=== PATIENT | female | born 1965 | race Caucasian/White ===

== ENCOUNTER 2018-06-09 16:49 | Emergency (ER) | payer OTHER ==
[~2018-06-09] VITALS: Ht 170.1 cm; Wt 95.3 kg
--- NOTE | ~2018-06-09 | EKG ---
[place], [place] ELECTROCARDIOGRAM REPORT NAME: CHANNING CARNES UNIT #: [id number] ROOM: DOCTOR: EPIPHANY DRAFT REPORT BIRTHDATE: [birth year] [facility] Test Date: 2018-06-09 Test Time: 17:42:56 Pat Name: CHANNING CARNES Department: Room: Gender: F [employer] Administrator: : 1965 Requested By: DIEUDONNE HO PA-C Order Number: [id number] Reading MD: Adan Lemus MD Measurements Intervals [place] Rate: 88 P: 69 VT: 148 QRS: 22 QRSD: 98 T: 65 QT: 390 QTc: 472 Interpretive Statements Sinus rhythm Normal ECG Electronically Signed On 06-14-2018 7:17:54 PST by Adan Lemus MD CM:EKGRPT:ELECTROCARDIOGRAM REPORT [id number] DIEUDONNE HO PA-C EPIPHANY DRAFT REPORT DIEUDONNE HO PA-C
[2018-06-09 17:35] LABS: BASO # 0.1 10*3/uL (0.0-0.1); BASO % 0.7 % (0.0-1.0); EOS # 0.2 10*3/uL (0.0-0.4); EOS % 2.3 % (1.0-4.0); HEMATOCRIT 31.7 % (37.0-47.0); HEMOGLOBIN 10.5 g/dl (12.0-16.0); LYMPH # 2.1 10*3/uL (1.3-4.4); LYMPH % 20.5 % (27.0-41.0); MEAN CELL VOLUME 101.9 fl (81.0-99.0); MEAN CORPUSCULAR HGB 33.8 pg (27.0-31.0); MEAN CORPUSCULAR HGB CONC 33.1 g/dl (33.0-37.0); MONO # 0.6 10*3/uL (0.1-1.0); MONO % 6.4 % (3.0-9.0); NEUT % 69.7 % (47.0-73.0); PLATELET COUNT AUTOMATED 378 10*3/uL (130-400); RED BLOOD COUNT 3.11 10*6/uL (4.10-5.10); RED CELL DISTRI WIDTH 16.6 % (0-14.5)
[2018-06-09 17:42] LABS: INTERNATIONAL NORM RATIO 0.9 (2.0-3.5)
[2018-06-09 17:50] LABS: ALKALINE PHOSPHATASE 116 U/L (45-117); BUN 13 mg/dl (7-24); CHLORIDE 103 mmol/L (98-107); CREATININE 0.74 mg/dL (0.55-1.02); SGOT/AST 28 IU/L (3-35); SGPT/ALT 26 U/L (12-78); SODIUM 137 mmol/L (136-145)
[2018-06-09 17:52] LABS: TROPONIN I < 0.015 ng/ml (<0.045)
[2018-06-09] MEDS ORDERED: ZITHROMAX250 MG PO (18:27)
== END 2018-06-09 18:04 | disposition home or self-care (01) ==
LOC: ED
PROVIDERS: Physician Assistant
DX: J18.9 Pneumonia, unspecified organism (principal); R60.0 Localized edema; F17.200 Nicotine dependence, unspecified, uncomplicated

== ENCOUNTER → 2018-11-24 | Outpatient (CLI) | payer OTHER ==
[~2018-11-24] MED LIST: ARIPIPRAZOLE2 MG PO; ATORVASTATIN CA20 M1 PO; CLONAZEPAM0.5 M2 PO; DOXYCYCLINE100 M3 PO; FEROSUL325 M1 PO; FLONASE ALLERG9.9 ML NAS; FLUOXETINE HYDR20 M1 PO; GABAPENTIN800 MG PO; GOOD NEIGHBOR L10 MG PO; LISINOPRIL10 M1 PO; METOPROLOL TART50 M1 PO; PREDNISONE10 MG PO; Synthroid,Levo25 MCG PO; TEMAZEPAM30 MG PO; ZITHROMAX250 MG PO
== END | disposition home or self-care (01) ==
LOC: US 10:02
DX: I65.23 Occlusion and stenosis of bilateral carotid arteries (principal); I10 Essential (primary) hypertension; F17.200 Nicotine dependence, unspecified, uncomplicated; R51 Headache

== ENCOUNTER 2019-04-24 09:33 | Inpatient (IN) | payer OTHER ==
[~2019-04-24] VITALS: Ht 175.3 cm; Wt 76.8 kg
[2019-04-24] VITALS (9 sets, daily range): BP systolic 103–120; BP diastolic 52–74
--- NOTE | ~2019-04-24 | CON ---
[place], [place] REPORT OF CONSULTATION NAME: CHANNING CARNES UNIT #: [id number] ROOM: 504 DOCTOR: HAZEL ORELLANA DMD BIRTHDATE: [birth year] DOS: REASON FOR CONSULTATION: Intraoral pain following full mouth extraction. HISTORY OF PRESENT ILLNESS: The patient gives a history of full mouth extraction roughly a month ago at [facility] in [place]. The patient's complaint is continued pain over this last month with slowly healing extraction sites. No swelling noted. Intraoral exam shows multiple healing extraction sites with areas of sharp bone. There are multiple areas of bone fragments migrating to the surface of the tissue. Recommend the patient contact her private dentist once discharged and have those areas removed and the sharp areas of bone were smoothed. Patient is okay for dental discharge. HAZEL ORELLANA DMD CM:CONSTR:REPORT OF CONSULTATION [id number] 04/26/19 0053 interface
--- NOTE | ~2019-04-24 | EKG ---
[place], [place] ELECTROCARDIOGRAM REPORT NAME: CHANNING CARNES UNIT #: [id number] ROOM: 504 DOCTOR: BLAINE DRAFT REPORT BIRTHDATE: [address] [facility] Test Date: 2019-04-24 Test Time: 10:01:51 Pat Name: CHANNING CARNES Department: Room: [facility] Gender: F Pulley Man: : 1965 Requested By: JASON CABALLERO Order Number: [id number] Reading MD: Yvon Hoyt MD Measurements Intervals [place] Rate: 74 P: 63 CO: 137 QRS: 6 QRSD: 86 T: 55 QT: 404 QTc: 449 Interpretive Statements Sinus rhythm Compared to ECG 12/21/2018 03:55:53 No significant changes Electronically Signed On 04-24-2019 12:06:56 PDT by Yvon Hoyt MD CM:EKGRPT:ELECTROCARDIOGRAM REPORT [id number] JASON VALLADARES DRAFT REPORT JASON CABALLERO M.D.
[2019-04-24 10:08] LABS: HEMATOCRIT 40.9 % (37.0-47.0); HEMOGLOBIN 12.8 g/dl (12.0-16.0); MEAN CELL VOLUME 107.9 fl (81.0-99.0); MEAN CORPUSCULAR HGB 33.8 pg (27.0-31.0); MEAN CORPUSCULAR HGB CONC 31.3 g/dl (33.0-37.0); MEAN PLATELET VOLUME 8.8 fl (9.6-12.3); PLATELET COUNT AUTOMATED 495 10*3/uL (130-400); RED BLOOD COUNT 3.79 10*6/uL (4.10-5.10); RED CELL DISTRI WIDTH 15.1 % (0-14.5); WHITE BLOOD COUNT 11.4 10*3/uL (4.8-10.8)
[2019-04-24 10:23] LABS: ALBUMIN 3.7 gm/dl (3.1-4.5); ALKALINE PHOSPHATASE 141 U/L (45-117); BUN 26 mg/dl (7-24); CHLORIDE 101 mmol/L (98-107); CREATININE 3.55 mg/dL (0.55-1.02); POTASSIUM 4.4 mmol/L (3.5-5.1); SGOT/AST 24 IU/L (3-35); SGPT/ALT 20 U/L (12-78); SODIUM 140 mmol/L (136-145); TOTAL PROTEIN 8.3 gm/dL (6.4-8.2)
[2019-04-24 10:24] LABS: TROPONIN I < 0.015 ng/ml (<0.045)
[2019-04-24 10:30] LABS: ATYPICAL LYMPHS 1 % (0-0); BASOPHILS 4 % (0-1); PLATELET SUFFICIENCY HIGH (NORMAL); TOTAL CELLS COUNTED 100 #CELLS
[2019-04-24 10:31] LABS: POLYCHROMASIA SLIGHT
--- NOTE | 2019-04-24 10:46 | NUR ---
IV WAS ESTABLISED IN THE RAN, IV FLUIDS INFUSUSING PER ORDER. PT WAS ADMINISTERED TYLENOL FOR HEADACHE.
[2019-04-24 11:22] LABS: BILIRUBIN 1+ (NEGATIVE); BLOOD TRACE-INTACT (NEGATIVE); CLARITY CLOUDY (CLEAR); COLOR YELLOW (YELLOW); GLUCOSE NEGATIVE (NEGATIVE); KETONE TRACE (NEGATIVE); LEUKO ESTERASE TRACE (NEGATIVE); NITRITE NEGATIVE (NEGATIVE); PH 5.5 (5.0-9.0); SPECIFIC GRAVITY >= 1.030 (1.005-1.030); UROBILINOGEN 0.2 E.U./dl (0.2-1.0)
[2019-04-24 11:31] LABS: BACTERIA 1+; EPITHELIAL CELLS TNTC; RBC 0-2 rbc/hpf (0-2)
--- NOTE | 2019-04-24 12:56 | NUR ---
Time: 1255 A 54 year old ACUTE RENAL INSUFFIENCY, DEHYDRATION admitted to 5E under services of JOE CHAVEZ DO. Pt. arrived via stretcher from ER. Chief complaint: COUGH, HEADACHE WEAKNESS AND HYPOTENSIONBP UPON ARRIVAL TO FLOOR IS 103/53 MEDICATIONS RECONSILED AND CALL TO PHYSICIAN.. RUPERT VAALDEZ
--- NOTE | 2019-04-24 14:29 | NUR ---
PATIENT GIVEN MORPHINE FOR SEVERE H/A 04/19
--- NOTE | 2019-04-24 14:59 | NUR ---
CALL PLACED AND SPOKE TO DR. ORELLANA ADVISED OF CONSULT
--- NOTE | 2019-04-24 15:29 | NUR ---
GOOD EFFECT FROM MORPHINE GIVEN X 1 HOUR AGO EVIDENCE BY PATIENT SLEEPING, NO DISTRESS NOTED.
--- NOTE | 2019-04-24 21:35 | NUR ---
PATIENT REQUESTING TO HAVE IV MOVED BECAUSE EVERYTIME SHE BENDS HER ARM. IV started left forearm with #22 protective cath after 1 attempts. Site prepped with Chloroprep. Sterile dressing applied. Patient tolerated procedure well. DIEUDONNE LINARES
[2019-04-25] VITALS: BP 116/61
--- NOTE | 2019-04-25 04:33 | NUR ---
24 HR chart check completed.
--- NOTE | 2019-04-25 06:37 | NUR ---
PATIENT REQUESTING PAIN MEDICATION FOR MOUTH PAIN RATED 8/10 ON 0/10 SCALE. NORCO ADMINISTERED PRESCRIBED. WILL MONITOR FOR EFFECTIVENESS.
[2019-04-25 06:46] LABS: HEMATOCRIT 34.9 % (37.0-47.0); MEAN CELL VOLUME 106.7 fl (81.0-99.0); MEAN CORPUSCULAR HGB 33.6 pg (27.0-31.0); MEAN CORPUSCULAR HGB CONC 31.5 g/dl (33.0-37.0); MEAN PLATELET VOLUME 9.1 fl (9.6-12.3); PLATELET COUNT AUTOMATED 427 10*3/uL (130-400); RED BLOOD COUNT 3.27 10*6/uL (4.10-5.10); RED CELL DISTRI WIDTH 14.6 % (0-14.5); WHITE BLOOD COUNT 13.8 10*3/uL (4.8-10.8)
[2019-04-25 07:03] LABS: CREATININE 4.39 mg/dL (0.55-1.02); PHOSPHOROUS 3.5 mg/dL (2.5-4.9); POTASSIUM 4.5 mmol/L (3.5-5.1)
[2019-04-25 07:12] LABS: ATYPICAL LYMPHS 1 % (0-0); TOTAL CELLS COUNTED 100 #CELLS
[2019-04-25 07:13] LABS: PLATELET SUFFICIENCY HIGH (NORMAL)
[2019-04-25 08:00] VITALS: BP 132/72
--- NOTE | 2019-04-25 10:13 | NUR ---
PATIENT C/O MOUTH PAIN AND A HEADACHE. MEDICATED WITH NORCO PER PRN ORDERS. RATE 5/10 ON PAIN SCALE. WILL CONTINUE TO MONITOR.
--- NOTE | 2019-04-25 11:30 | NUR ---
PATIENT RESTING QUIETLY. NO FURTHER C/O PAIN. WILL CONTINUE TO MONITOR.
[2019-04-25 12:00] VITALS: BP 153/83
--- NOTE | 2019-04-25 12:05 | NUR ---
[employer]rown Perforator Operator in to talk to patient. Patient states lives at HOME with ALONE. There are NO steps in the home. Physician: Santa VILLAFANA Pharmacy: WANTS SENT TO [facility] Home health services: NONE Patient's level of ADLs: INDEPENDENT Patient has working utilities: YES DME: NONE Follow-up physician's appointment after d/c: WILL BE MADE BY HOSPITALIST NURSE DIRECTOR Does patient want to access PORTAL?: NO Discharge plan PT LIVES AT HOME ALONE. STATES SHE IS INDEPENDENT IN HER CARE. PLANS TO RETURN HOME ON DISCHARGE WHEN MEDICALLY STABLE WITH NO NEW NEEDS. WILL CONTINUE TO FOLLOW. STATES SHE WILL HAVE A RIDE HOME ON DISCHARGE.. MARIELOS LINARES
--- NOTE | 2019-04-25 14:16 | NUR ---
PATIENT C/O MOUTH PAIN AND HEADACHE. MEDICATED WITH NORCO PER PRN ORDER. WILL CONTINUE TO MONITOR.
[2019-04-25 16:00] VITALS: BP 141/74
--- NOTE | 2019-04-25 16:00 | NUR ---
NO FURTHER C/O PAIN AT THIS TIME. NORCO EFFECTIVE.
[2019-04-25 18:38] LABS: URINE CREATININE RANDOM 72.6 mg/dL
[2019-04-25 20:00] VITALS: BP 140/71
--- NOTE | 2019-04-25 22:20 | NUR ---
MEDICATED WITH NORCO AND CEPACOL PER PRN ORDERS FOR C/O COUGH AND PAIN.
[2019-04-26] VITALS: BP 146/86
--- NOTE | 2019-04-26 | NUR ---
PATIENT STATES MEDICATIONS WERE EFFECTIVE. NO OTHER COMPLAINTS VOICED AT THIS TIME. RESPIRATIONS EASY, NON LABORED. NORMAL SALINE RUNNING AT 100ML/HR. NO SIGNS OF DISTRESS. BED IN LOWEST POSITION,CALL LIGHT WITHIN REACH.WILL CONTINUE TO MONITOR.
--- NOTE | 2019-04-26 04:00 | NUR ---
PATIENT SLEEPING.NO SIGNS OF DISTRESS.RESPIRATIONS EASY, NON LABORED. BED IN LWOEST POSITION,CALL LIGHT WITHIN REACH. WILL CONTINUE TO MONITOR.
[2019-04-26 07:09] LABS: CREATININE 3.98 mg/dL (0.55-1.02); POTASSIUM 4.9 mmol/L (3.5-5.1)
--- NOTE | 2019-04-26 08:20 | NUR ---
MEDICATED WITH NORCO PER PRN ORDER FOR COMPLAINTS OF HEADACHE AND TOOTH PAIN. WILL MONITOR FOR EFFECTIVENESS.
[2019-04-26 08:59] VITALS: BP 164/100
--- NOTE | 2019-04-26 10:00 | NUR ---
PT RESTING COMFORTABLY, EARLIER NORCO EFFECTIVE.
--- NOTE | 2019-04-26 10:53 | NUR ---
Nutritional Support Services Note: Pt states she has had teeth removed recently that is why is had a lack of appetite and weight loss. Ht.5'9 Wt.169# IBW 145#. BMI 25. Regular diet as ordered approriate. Appetite has been good since admission. No nutriton intervention needed at this time. Continue to encourage good po in take. Zully Rankin Rdn Ld
--- NOTE | 2019-04-26 11:59 | NUR ---
PT DENIES NEEDS AT HOME ON DISCHARGE. WILL CONTINUE TO FOLLOW. STATES SHE WILL HAVE A RIDE HOME.
[2019-04-26 12:00] VITALS: BP 178/94
--- NOTE | 2019-04-26 13:22 | NUR ---
MEDICATED WITH NORCO FOR COMPLAINTS OF A HEADACHE. WILL MONITOR FOR EFFECTIVENESS.
--- NOTE | 2019-04-26 13:47 | NUR ---
DR HAWKINS MADE AWARE OF PT'S TRENDING ELEVATED BP'S: LATEST 178/94, PT STATES PREVIOUSLY WHEN SHE WAS ONLY ON METOPROLOL THIS HAPPENED.
--- NOTE | 2019-04-26 15:00 | NUR ---
PT RESTING COMFORTABLY, EARLIER NORCO EFFECTIVE.
[2019-04-26 16:00] VITALS: BP 161/86
--- NOTE | 2019-04-26 18:15 | NUR ---
MEDICATED WITH NORCO PER PRN ORDER FOR COMPLAINTS OF HEADACHE, WILL MONITOR FOR EFFECTIVENESS.
[2019-04-26 20:00] VITALS: BP 168/88
--- NOTE | 2019-04-26 22:51 | NUR ---
PATIENT REQUESTING SOMETHING TO HELP SLEEP. MEDICATED WITH RESTORIL WILL CHECK EFFECTIVESS. PATIENT ALSO STATES NORCO IS HELPING HER MOUTH PAIN.
[2019-04-27] VITALS: BP 149/91
--- NOTE | 2019-04-27 03:58 | NUR ---
PATIENT C/O [facility] PAIN, RATES 6/10. MEDICATED WITH NORCO.WILL CHECK EFFECTIVENESS.
[2019-04-27 06:38] LABS: CREATININE 3.01 mg/dL (0.55-1.02); POTASSIUM 5.1 mmol/L (3.5-5.1)
[2019-04-27 08:00] VITALS: BP 184/94
--- NOTE | 2019-04-27 08:29 | NUR ---
MEDICATED WITH NORCO FOR COMPLAINTS OF HEADACHE AND DENTAL PAIN. WILL MONITOR.
--- NOTE | 2019-04-27 10:00 | NUR ---
SPOKE WITH DR HANDLEY, PER DR MARADIAGA REQUEST, STATES PT MAY BE D/C FROM HER STANDPOINT AND FOLLOW UP OUTPATIENT WITH DR MCDONALD. DR KING INFORMED.
[2019-04-27 12:00] VITALS: BP 167/90
--- NOTE | 2019-04-27 12:08 | NUR ---
PT STATES SHE THINKS SHE IS GOING HOME TODAY. STATES SHE WILL NEED A RIDE TO [facility] THEN HOME. WILL CONTINUE TO FOLLOW.
--- NOTE | 2019-04-27 12:12 | NUR ---
CALLED HOSPITALIST OFFICE TO ASK THEM TO SEND PT MEDS TO OUR PHARMACY TO GET FILLED THEN WILL WORK TO GET A PT RIDE HOME.
[2019-04-27] MEDS ORDERED: NICOTINE PATCH1 EAC2 TD (12:56)
[2019-04-27] MEDS ORDERED: AMLODIPINE BESYL5 MG PO (12:56)
[2019-04-27] MEDS ORDERED: PREDNISONE10 MG PO (12:56)
--- NOTE | 2019-04-27 13:24 | NUR ---
MEDICATED WITH NORCO PER PRN ORDER FOR COMPLAINTS OF HEADACHE AND DENTAL PAIN. WILL MONITOR FOR EFFECTIVENESS.
--- NOTE | 2019-04-27 15:00 | NUR ---
Discharge instructions reviewed with patient/family. Patient receptive and verbalizes understanding. Follow-up care arranged. Written instructions given to patient/family. IV site removed. HELEN WEAVER
== END 2019-04-27 15:04 | disposition home or self-care (01) | DRG 207 ==
LOC: ED 09:33 → 5E 11:48 → EDHOLD 11:48 → 5E 12:28
PROVIDERS: Emergency Medicine; Internal Medicine; Student in an Organized Health Care Education/Training Program; ADMIT Internal Medicine
DX: I95.9 Hypotension, unspecified (principal); E86.0 Dehydration; N17.0 Acute kidney failure with tubular necrosis; E44.1 Mild protein-calorie malnutrition; D53.9 Nutritional anemia, unspecified; I10 Essential (primary) hypertension; D72.829 Elevated white blood cell count, unspecified; J18.9 Pneumonia, unspecified organism; E78.5 Hyperlipidemia, unspecified; E03.9 Hypothyroidism, unspecified; E66.3 Overweight; E55.9 Vitamin D deficiency, unspecified; R80.9 Proteinuria, unspecified; R82.2 Biliuria; R82.71 Bacteriuria; Z88.0 Allergy status to penicillin; Z88.1 Allergy status to other antibiotic agents; Z91.5 Personal history of self-harm; Z87.891 Personal history of nicotine dependence; Z82.49 Family history of ischemic heart disease and other diseases of the circulatory system; Z79.899 Other long term (current) drug therapy; Z68.24 Body mass index [BMI] 24.0-24.9, adult

== ENCOUNTER → 2019-06-01 | Outpatient (CLI) | payer OTHER ==
[~2019-06-01] MED LIST changes: +AMLODIPINE BESYL5 MG PO; +NICOTINE PATCH1 EAC2 TD
== END | disposition home or self-care (01) ==
LOC: ORTHO 00:37
DX: M25.511 Pain in right shoulder (principal)

== ENCOUNTER → 2019-08-24 | Outpatient (CLI) | payer OTHER ==
[2019-08-24 09:35] LABS: BASO # 0.1 10*3/uL (0.0-0.1); BASO % 0.9 % (0.0-1.0); EOS # 0.4 10*3/uL (0.0-0.4); EOS % 3.2 % (1.0-4.0); HEMATOCRIT 40.9 % (37.0-47.0); HEMOGLOBIN 13.2 g/dl (12.0-16.0); LYMPH # 1.9 10*3/uL (1.3-4.4); LYMPH % 16.4 % (27.0-41.0); MEAN CELL VOLUME 105.1 fl (81.0-99.0); MEAN CORPUSCULAR HGB 33.9 pg (27.0-31.0); MEAN CORPUSCULAR HGB CONC 32.3 g/dl (33.0-37.0); MEAN PLATELET VOLUME 8.2 fl (9.6-12.3); MONO # 0.7 10*3/uL (0.1-1.0); MONO % 6.3 % (3.0-9.0); NEUT # 8.3 10*3/uL (2.3-7.9); NEUT % 72.9 % (47.0-73.0); PLATELET COUNT AUTOMATED 389 10*3/uL (130-400); RED BLOOD COUNT 3.89 10*6/uL (4.10-5.10); RED CELL DISTRI WIDTH 14.7 % (0-14.5); WHITE BLOOD COUNT 11.4 10*3/uL (4.8-10.8)
[2019-08-24 10:11] LABS: ALBUMIN 3.8 gm/dl (3.1-4.5); ALKALINE PHOSPHATASE 101 U/L (45-117); BUN 14 mg/dl (7-24); CHLORIDE 106 mmol/L (98-107); CREATININE 0.75 mg/dL (0.55-1.02); IRON 44 ug/dL (50-170); POTASSIUM 3.8 mmol/L (3.5-5.1); SGOT/AST 11 IU/L (3-35); SGPT/ALT 23 U/L (12-78); SODIUM 140 mmol/L (136-145); TOTAL IRON BINDING CAPACITY 398 ug/dl (250-450); TOTAL PROTEIN 7.7 gm/dL (6.4-8.2)
== END | disposition home or self-care (01) ==
LOC: LAB 00:13
PROVIDERS: Nurse Practitioner Family
DX: L29.9 Pruritus, unspecified (principal); L94.2 Calcinosis cutis

== ENCOUNTER → 2020-03-28 | Outpatient (CLI) | payer OTHER | END | disposition home or self-care (01) | LOC: RAD 10:26 | PROVIDERS: ATTEND Internal Medicine Critical Care Medicine | DX: R05 Cough (principal) ==

== ENCOUNTER 2020-05-04 05:01 | Emergency (ER) | payer OTHER ==
[~2020-05-04] VITALS: Ht 175.2 cm; Wt 81.6 kg
[2020-05-04 05:53] LABS: BASO # 0.1 10*3/uL (0.0-0.1); BASO % 1.3 % (0.0-1.0); EOS # 0.3 10*3/uL (0.0-0.4); EOS % 3.4 % (1.0-4.0); HEMATOCRIT 41.8 % (37.0-47.0); LYMPH # 2.8 10*3/uL (1.3-4.4); LYMPH % 33.8 % (27.0-41.0); MEAN CELL VOLUME 105.8 fl (81.0-99.0); MEAN CORPUSCULAR HGB 33.2 pg (27.0-31.0); MEAN CORPUSCULAR HGB CONC 31.3 g/dl (33.0-37.0); MEAN PLATELET VOLUME 8.6 fl (9.6-12.3); MONO # 1.1 10*3/uL (0.1-1.0); MONO % 13.1 % (3.0-9.0); NEUT % 47.2 % (47.0-73.0); PLATELET COUNT AUTOMATED 402 10*3/uL (130-400); RED BLOOD COUNT 3.95 10*6/uL (4.10-5.10); WHITE BLOOD COUNT 8.4 10*3/uL (4.8-10.8)
[2020-05-04 05:57] LABS: ALBUMIN 3.7 gm/dl (3.1-4.5); ALKALINE PHOSPHATASE 132 U/L (45-117); BUN 19 mg/dl (7-24); CHLORIDE 110 mmol/L (98-107); LIPASE 246 U/L (73-393); POTASSIUM 4.2 mmol/L (3.5-5.1); SGOT/AST 35 IU/L (3-35); SGPT/ALT 27 U/L (12-78); SODIUM 137 mmol/L (136-145)
[2020-05-04 05:58] LABS: TROPONIN I < 0.015 ng/ml (<0.045)
== END 2020-05-04 07:12 | disposition home or self-care (01) ==
LOC: ED 05:01
PROVIDERS: Emergency Medicine Emergency Medical Services
DX: S00.03XA Contusion of scalp, initial encounter (principal); E78.5 Hyperlipidemia, unspecified; I10 Essential (primary) hypertension; E03.9 Hypothyroidism, unspecified; Z88.0 Allergy status to penicillin; Z88.1 Allergy status to other antibiotic agents; Z79.899 Other long term (current) drug therapy; W18.39XA Other fall on same level, initial encounter; Y93.89 Activity, other specified; Y92.89 Other specified places as the place of occurrence of the external cause; Y99.8 Other external cause status

== ENCOUNTER → 2020-05-26 | Outpatient (CLI) | payer OTHER | END | disposition home or self-care (01) | LOC: CARD 05-13 13:00 | PROVIDERS: ATTEND Internal Medicine Cardiovascular Disease | DX: R06.00 Dyspnea, unspecified (principal) ==

== ENCOUNTER → 2020-10-08 | Outpatient (CLI) | payer OTHER | END | disposition home or self-care (01) | LOC: RAD 11:14 | PROVIDERS: ATTEND Nurse Practitioner Primary Care | DX: M47.816 Spondylosis without myelopathy or radiculopathy, lumbar region (principal); M48.02 Spinal stenosis, cervical region; M25.78 Osteophyte, vertebrae; M89.38 Hypertrophy of bone, other site; M46.02 Spinal enthesopathy, cervical region ==

== ENCOUNTER 2020-11-16 16:10 | Emergency (ER) | payer OTHER ==
[~2020-11-16] VITALS: Ht 175.2 cm; Wt 77.1 kg
[2020-11-16] MEDS ORDERED: METHOCARBAMOL500 M1 PO (18:23)
[2020-11-16] MEDS ORDERED: PREDNISONE20 M1 PO ×2 (18:23→18:52)
== END 2020-11-16 18:45 | disposition home or self-care (01) ==
LOC: ED 16:10
DX: M54.12 Radiculopathy, cervical region (principal); Z88.0 Allergy status to penicillin; Z88.1 Allergy status to other antibiotic agents; Z79.899 Other long term (current) drug therapy; Z98.890 Other specified postprocedural states; Z90.89 Acquired absence of other organs; Z87.891 Personal history of nicotine dependence

== ENCOUNTER → 2020-12-12 | Outpatient (CLI) | payer OTHER ==
[~2020-12-12] MED LIST changes: +METHOCARBAMOL500 M1 PO; +PREDNISONE20 M1 PO
== END | disposition home or self-care (01) ==
LOC: MRI 09:39
PROVIDERS: ATTEND Nurse Practitioner Primary Care
DX: M47.812 Spondylosis without myelopathy or radiculopathy, cervical region (principal); M50.30 Other cervical disc degeneration, unspecified cervical region; M48.02 Spinal stenosis, cervical region; M99.79 Connective tissue and disc stenosis of intervertebral foramina of abdomen and other regions

== ENCOUNTER 2021-05-07 13:09 | Inpatient (IN) | payer OTHER ==
[~2021-05-07] VITALS: Ht 175.2 cm; Wt 82.6 kg
[~2021-05-07 13:09] MED LIST changes: +'XANAX1 MG PO; +AVAPRO75 MG PO; +BACLOFEN5 MG PO; +HYDROCODONE-AC1 EAC1 PO; +MECLIZINE HYD12.5 MG PO; +MYSOLINE250 MG PO; +SYMB160 INH; +VITAMIN D3125 MCG PO
[2021-05-07 13:22] VITALS: BP 138/80
[2021-05-07] MEDS ORDERED: DAYVIGO5 MG PO (13:47)
[2021-05-07] MEDS ORDERED: CETIRIZINE HYDR10 MG PO (13:47)
[2021-05-07] MEDS ORDERED: CLONAZEPAM0.5 M2 PO (13:47)
[2021-05-07] MEDS ORDERED: LOVASTATIN10 MG PO (13:48)
[2021-05-07] MEDS ORDERED: MULTIVITAMINS1 EAC6 PO (13:48)
[2021-05-07] MEDS ORDERED: BACLOFEN5 MG PO (13:50)
[2021-05-07] MEDS ORDERED: PRISTIQ50 MG PO ×2 (13:51→13:53)
[2021-05-07] MEDS ORDERED: B121000 MCG/1 IM (13:51)
[2021-05-07 14:13] LABS: BASO # 0.1 10*3/uL (0.0-0.1); BASO % 0.8 % (0.0-1.0); EOS # 0.3 10*3/uL (0.0-0.4); EOS % 1.8 % (1.0-4.0); LYMPH # 3.4 10*3/uL (1.3-4.4); MEAN CELL VOLUME 107.8 fl (81.0-99.0); MEAN CORPUSCULAR HGB 33.6 pg (27.0-31.0); MEAN CORPUSCULAR HGB CONC 31.1 g/dl (33.0-37.0); MEAN PLATELET VOLUME 8.5 fl (9.6-12.3); MONO # 1.1 10*3/uL (0.1-1.0); MONO % 7.4 % (3.0-9.0); NEUT # 9.8 10*3/uL (2.3-7.9); NEUT % 66.7 % (47.0-73.0); PLATELET COUNT AUTOMATED 394 10*3/uL (130-400); RED BLOOD COUNT 4.08 10*6/uL (4.10-5.10); RED CELL DISTRI WIDTH 13.5 % (0-14.5); WHITE BLOOD COUNT 14.6 10*3/uL (4.8-10.8)
[2021-05-07 14:31] LABS: ACT PARTIAL THROMBO TIME 26.4 SECONDS (20.0-32.1); ALBUMIN 3.3 gm/dl (3.1-4.5); ALKALINE PHOSPHATASE 129 U/L (45-117); BUN 21 mg/dl (7-24); CHLORIDE 112 mmol/L (98-107); CREATININE 0.79 mg/dL (0.55-1.02); LIPASE 67 U/L (73-393); POTASSIUM 3.5 mmol/L (3.5-5.1); SGOT/AST 110 IU/L (3-35); SGPT/ALT 44 U/L (12-78); SODIUM 142 mmol/L (136-145); TOTAL PROTEIN 7.3 gm/dL (6.4-8.2)
[2021-05-07 14:38] LABS: TROPONIN I < 0.015 ng/ml (<0.045)
[2021-05-07 18:19] LABS: BILIRUBIN 1+ (Negative); BLOOD 2+ (Negative); CLARITY Clear (Clear); COLOR Dark Yellow (Yellow); GLUCOSE Negative (Negative); KETONE Negative (Negative); LEUKO ESTERASE 1+ (Negative); NITRITE Positive (Negative); PH 5.5 (4.5-8.0); SPECIFIC GRAVITY 1.025 (1.001-1.030)
[2021-05-07 18:26] VITALS: BP 121/65
[2021-05-07 18:36] LABS: BACTERIA 4+; WBC 21-30 wbc/hpf (0-5)
[2021-05-07 19:41] VITALS: BP 133/61
[2021-05-07 20:20] VITALS: BP 145/61
[2021-05-07 21:30] VITALS: BP 120/51
[2021-05-07 22:00] VITALS: BP 117/50
[2021-05-08 06:00] LABS: ALBUMIN 2.3 gm/dl (3.1-4.5); BUN 15 mg/dl (7-24); CHLORIDE 118 mmol/L (98-107); CREATININE 0.44 mg/dL (0.55-1.02); POTASSIUM 3.9 mmol/L (3.5-5.1); SGOT/AST 61 IU/L (3-35); SGPT/ALT 33 U/L (12-78); SODIUM 146 mmol/L (136-145); TOTAL PROTEIN 5.5 gm/dL (6.4-8.2)
[2021-05-08 06:07] LABS: ALKALINE PHOSPHATASE 100 U/L (45-117); FREE T4 0.77 ng/dl (0.76-1.46); THYROID STIM HORMONE (HS) 0.257 uIU/ml (0.358-4.75)
[2021-05-08 06:20] LABS: BASO # 0.1 10*3/uL (0.0-0.1); BASO % 0.9 % (0.0-1.0); EOS # 0.3 10*3/uL (0.0-0.4); LYMPH % 37.6 % (27.0-41.0); MEAN CELL VOLUME 106.4 fl (81.0-99.0); MEAN CORPUSCULAR HGB 33.4 pg (27.0-31.0); MEAN CORPUSCULAR HGB CONC 31.4 g/dl (33.0-37.0); MEAN PLATELET VOLUME 8.9 fl (9.6-12.3); MONO # 0.9 10*3/uL (0.1-1.0); MONO % 10.9 % (3.0-9.0); NEUT # 3.7 10*3/uL (2.3-7.9); NEUT % 46.4 % (47.0-73.0); PLATELET COUNT AUTOMATED 332 10*3/uL (130-400); RED BLOOD COUNT 3.29 10*6/uL (4.10-5.10); RED CELL DISTRI WIDTH 13.2 % (0-14.5); WHITE BLOOD COUNT 8.1 10*3/uL (4.8-10.8)
[2021-05-08 08:00] VITALS: BP 116/50; BP 147/70
[2021-05-08 08:23] LABS: URINE AMPHETAMINES < 1000 (1000ng/ml); URINE BARBITURATES > 200 (200ng/ml); URINE BENZODIAZEPINES > 200 (200ng/ml); URINE CANNABINOIDS (THC) < 50 (50ng/ml); URINE COCAINE < 300 (300ng/ml); URINE METHADONE < 300 (300ng/ml); URINE OPIATES < 300 (300ng/ml)
[2021-05-08 08:25] LABS: URINE PHENCYCLIDINE < 25 (25ng/ml)
[2021-05-08 12:00] VITALS: BP 117/60
[2021-05-08 16:00] VITALS: BP 110/52
[2021-05-08 20:00] VITALS: BP 119/58
[2021-05-09 06:05] LABS: BASO # 0.1 10*3/uL (0.0-0.1); BASO % 1.2 % (0.0-1.0); EOS # 0.5 10*3/uL (0.0-0.4); EOS % 5.4 % (1.0-4.0); HEMATOCRIT 34.3 % (37.0-47.0); LYMPH # 2.5 10*3/uL (1.3-4.4); LYMPH % 29.6 % (27.0-41.0); MEAN CELL VOLUME 104.6 fl (81.0-99.0); MEAN CORPUSCULAR HGB 33.2 pg (27.0-31.0); MEAN CORPUSCULAR HGB CONC 31.8 g/dl (33.0-37.0); MEAN PLATELET VOLUME 8.7 fl (9.6-12.3); MONO # 0.9 10*3/uL (0.1-1.0); NEUT # 4.5 10*3/uL (2.3-7.9); NEUT % 52.6 % (47.0-73.0); PLATELET COUNT AUTOMATED 306 10*3/uL (130-400); RED BLOOD COUNT 3.28 10*6/uL (4.10-5.10); RED CELL DISTRI WIDTH 13.2 % (0-14.5); WHITE BLOOD COUNT 8.6 10*3/uL (4.8-10.8)
[2021-05-09 06:23] LABS: BUN 8 mg/dl (7-24); CHLORIDE 116 mmol/L (98-107); CREATININE 0.43 mg/dL (0.55-1.02); SODIUM 144 mmol/L (136-145)
[2021-05-09 06:50] LABS: CPK 1131 U/L (26-192)
[2021-05-09 08:00] VITALS: BP 139/74
[2021-05-09] MEDS ORDERED: CEPHALEXIN500 M1 PO (13:07)
== END 2021-05-09 14:05 | disposition home or self-care (01) | DRG 720 ==
LOC: ED 13:09 → EDHOLD 19:13 → 5E 19:13 → EDHOLD 19:32 → 5E 20:14
PROVIDERS: Emergency Medicine; Student in an Organized Health Care Education/Training Program; ADMIT Internal Medicine; ATTEND Internal Medicine
DX: A41.9 Sepsis, unspecified organism (principal); M62.82 Rhabdomyolysis; G35 Multiple sclerosis; E44.0 Moderate protein-calorie malnutrition; N39.0 Urinary tract infection, site not specified; E87.8 Other disorders of electrolyte and fluid balance, not elsewhere classified; E83.41 Hypermagnesemia; R74.01 Elevation of levels of liver transaminase levels; F17.210 Nicotine dependence, cigarettes, uncomplicated; Z71.6 Tobacco abuse counseling; I10 Essential (primary) hypertension; E78.5 Hyperlipidemia, unspecified; F32.A Depression, unspecified; D53.9 Nutritional anemia, unspecified; E87.0 Hyperosmolality and hypernatremia; F13.10 Sedative, hypnotic or anxiolytic abuse, uncomplicated; M54.12 Radiculopathy, cervical region; Z88.0 Allergy status to penicillin; Z88.8 Allergy status to other drugs, medicaments and biological substances; Z88.1 Allergy status to other antibiotic agents; Z79.899 Other long term (current) drug therapy; Z82.49 Family history of ischemic heart disease and other diseases of the circulatory system; Z68.26 Body mass index [BMI] 26.0-26.9, adult; J96.00 Acute respiratory failure, unspecified whether with hypoxia or hypercapnia

== ENCOUNTER → 2022-01-21 | Outpatient (CLI) | payer OTHER ==
[~2022-01-21] MED LIST changes: +B121000 MCG/1 IM; +CEPHALEXIN500 M1 PO; +CETIRIZINE HYDR10 MG PO; +DAYVIGO5 MG PO; +LOVASTATIN10 MG PO; +MULTIVITAMINS1 EAC6 PO; +PRISTIQ50 MG PO
== END | disposition home or self-care (01) ==
LOC: MAMMO 09:56
PROVIDERS: ATTEND Nurse Practitioner Women's Health
DX: N63.23 Unspecified lump in the left breast, lower outer quadrant (principal); R92.1 Mammographic calcification found on diagnostic imaging of breast; L29.9 Pruritus, unspecified

== ENCOUNTER → 2022-05-03 | Outpatient (CLI) | payer OTHER ==
[2022-05-03 12:56] LABS: HEMATOCRIT 40.6 % (37.0-47.0); RETICULOCYTE % 1.66 % (0.50-2.50)
[2022-05-03 13:12] LABS: IRON 77 ug/dL (50-170)
[2022-05-03 14:15] LABS: FERRITIN 307.3 ng/mL (10.0-291.0)
== END | disposition home or self-care (01) ==
LOC: LAB 12:14
PROVIDERS: Internal Medicine; ATTEND Nurse Practitioner Family
DX: D72.89 Other specified disorders of white blood cells (principal); D51.9 Vitamin B12 deficiency anemia, unspecified; E61.1 Iron deficiency; Z79.899 Other long term (current) drug therapy

== ENCOUNTER → 2022-05-18 | Outpatient (CLI) | payer OTHER ==
[2022-05-21 15:05] LABS: CRYPTOSPORIDIUM SMEAR, STOOL None seen (None seen); ISOSPORA SMEAR, STOOL None seen (None seen)
[2022-05-24 15:05] LABS: FATS, NEUTRAL Normal (.); FATS, TOTAL Increased (.)
== END | disposition home or self-care (01) ==
LOC: LAB 03:00
PROVIDERS: ATTEND Internal Medicine Gastroenterology
DX: G35 Multiple sclerosis (principal); L65.9 Nonscarring hair loss, unspecified; R19.4 Change in bowel habit; R19.7 Diarrhea, unspecified; R63.0 Anorexia

== ENCOUNTER → 2022-05-27 | Outpatient (CLI) | payer OTHER ==
[2022-05-27 11:50] LABS: THYROID STIM HORMONE (HS) 1.48 uIU/ml (0.358-4.75)
[2022-05-28 13:06] LABS: ENDOMYSIAL ANTIBODY IgA Negative (Negative)
[2022-05-28 15:06] LABS: t-TRANSGLUTAMINASE (tTG) IGA <2 U/mL (0-3); t-TRANSGLUTAMINASE (tTG) IgG <2 U/mL (0-5)
== END | disposition home or self-care (01) ==
LOC: LAB 00:25
PROVIDERS: ATTEND Internal Medicine Gastroenterology
DX: R19.7 Diarrhea, unspecified (principal); L65.9 Nonscarring hair loss, unspecified; R63.0 Anorexia; G35 Multiple sclerosis; R19.4 Change in bowel habit

== ENCOUNTER → 2022-06-07 | Outpatient (CLI) | payer OTHER | END | disposition home or self-care (01) | LOC: RAD 08:46 | PROVIDERS: ATTEND Internal Medicine | DX: M25.512 Pain in left shoulder (principal); G89.29 Other chronic pain ==

== ENCOUNTER → 2022-08-16 | Outpatient (CLI) | payer OTHER | END | disposition home or self-care (01) | LOC: CARD 08-03 09:00 | PROVIDERS: ATTEND Internal Medicine | DX: R55 Syncope and collapse (principal) ==

== ENCOUNTER → 2022-08-30 | Outpatient (CLI) | payer OTHER | END | disposition home or self-care (01) | LOC: RAD 08-23 14:00 | PROVIDERS: ATTEND Orthopaedic Surgery | DX: M81.0 Age-related osteoporosis without current pathological fracture (principal) ==

== ENCOUNTER 2023-05-24 16:12 | Emergency (ER) | payer OTHER ==
[~2023-05-24] VITALS: Ht 175.2 cm; Wt 68.0 kg
== END 2023-05-24 21:47 | disposition home or self-care (01) ==
LOC: ED 16:12
DX: S20.213A Contusion of bilateral front wall of thorax, initial encounter (principal); I10 Essential (primary) hypertension; F32.A Depression, unspecified; J44.9 Chronic obstructive pulmonary disease, unspecified; F41.9 Anxiety disorder, unspecified; Z88.0 Allergy status to penicillin; Z88.1 Allergy status to other antibiotic agents; Z88.8 Allergy status to other drugs, medicaments and biological substances; Z90.49 Acquired absence of other specified parts of digestive tract; Z98.890 Other specified postprocedural states; F17.290 Nicotine dependence, other tobacco product, uncomplicated; W10.9XXA Fall (on) (from) unspecified stairs and steps, initial encounter; Y93.89 Activity, other specified; Y92.89 Other specified places as the place of occurrence of the external cause; Y99.8 Other external cause status

== ENCOUNTER 2023-06-09 13:15 | Emergency (ER) | payer OTHER ==
[~2023-06-09] VITALS: Ht 175.2 cm; Wt 68.0 kg
[2023-06-09] MEDS ORDERED: HYDROCODONE-AC1 EAC1 PO (18:47)
== END 2023-06-09 18:56 | disposition home or self-care (01) ==
LOC: ED 13:15
DX: S20.214A Contusion of middle front wall of thorax, initial encounter (principal); R10.9 Unspecified abdominal pain; M54.9 Dorsalgia, unspecified; I10 Essential (primary) hypertension; F32.A Depression, unspecified; J44.9 Chronic obstructive pulmonary disease, unspecified; F41.9 Anxiety disorder, unspecified; Z88.0 Allergy status to penicillin; Z88.1 Allergy status to other antibiotic agents; Z88.8 Allergy status to other drugs, medicaments and biological substances; Z98.890 Other specified postprocedural states; Z90.89 Acquired absence of other organs; F17.200 Nicotine dependence, unspecified, uncomplicated; W01.198A Fall on same level from slipping, tripping and stumbling with subsequent striking against other object, initial encounter; Y93.89 Activity, other specified; Y92.000 Kitchen of unspecified non-institutional (private) residence as the place of occurrence of the external cause; Y99.8 Other external cause status

== ENCOUNTER → 2023-10-13 | Outpatient (CLI) | payer OTHER | END | disposition home or self-care (01) | LOC: MRI 02:25 | PROVIDERS: ATTEND Student in an Organized Health Care Education/Training Program | DX: S22.070A Wedge compression fracture of T9-T10 vertebra, initial encounter for closed fracture (principal); N28.1 Cyst of kidney, acquired; X58.XXXA Exposure to other specified factors, initial encounter; Y93.89 Activity, other specified; Y92.89 Other specified places as the place of occurrence of the external cause; Y99.8 Other external cause status ==

== ENCOUNTER → 2024-01-10 | Outpatient (CLI) | payer OTHER ==
[~2024-01-10] MED LIST changes: +8 HOUR PAIN RE650 M1 PO; +CHLORZOXAZONE500 M2 PO; +DAYVIGO10 MG PO; +DICYCLOMINE HYD10 MG PO; +HYDROCORTISONE30 GM T; +IRON256 MG PO; +MELATONIN5 M7 PO; +PHILLIPS' COLO1 EAC1 PO; +TOPAMAX25 M3 PO; +VITAMIN D250 MCG PO
== END | disposition home or self-care (01) ==
LOC: LAB 11:55
PROVIDERS: ATTEND Family Medicine
DX: R94.4 Abnormal results of kidney function studies (principal)

== ENCOUNTER → 2024-01-13 | Outpatient (CLI) | payer OTHER ==
[~2024-01-13] MED LIST changes: +IOHEXOL 300 MG/ML 100 ML VIAL IV ONE
== END | disposition home or self-care (01) ==
LOC: CT 12-16 09:00
PROVIDERS: ATTEND Family Medicine
DX: K46.9 Unspecified abdominal hernia without obstruction or gangrene (principal); N28.1 Cyst of kidney, acquired; K76.0 Fatty (change of) liver, not elsewhere classified

== ENCOUNTER 2024-05-14 09:42 | Emergency (ER) | payer OTHER ==
[~2024-05-14] VITALS: Ht 175.2 cm; Wt 70.3 kg
[~2024-05-14 09:42] MED LIST changes: -IOHEXOL 300 MG/ML 100 ML VIAL IV ONE
[2024-05-14] MEDS ORDERED: REXULTI2 MG PO (10:08)
[2024-05-14] MEDS ORDERED: TRAMADOL HCL50 MG PO (10:11)
[2024-05-14] MEDS ORDERED: 24 HOUR ALLER15.8 ML NAS (10:12)
[2024-05-14] MEDS ORDERED: AVPAK AZITHROM250 MG PO (12:05)
[2024-05-14] MEDS ORDERED: Dexamethasone Sodium Phospha 20 MG/5 ML VIAL IM ONE (12:10)
[2024-05-14] MEDS ORDERED: AZITHROMYCIN 250 MG TAB PO ONE (13:00)
== END 2024-05-14 14:21 | disposition home or self-care (01) ==
LOC: ED 09:42
DX: J44.9 Chronic obstructive pulmonary disease, unspecified (principal); Z20.822 Contact with and (suspected) exposure to COVID-19; I10 Essential (primary) hypertension; F41.9 Anxiety disorder, unspecified; F31.9 Bipolar disorder, unspecified; F17.290 Nicotine dependence, other tobacco product, uncomplicated; Z88.0 Allergy status to penicillin; Z88.1 Allergy status to other antibiotic agents; Z88.8 Allergy status to other drugs, medicaments and biological substances; Z90.89 Acquired absence of other organs; Z98.890 Other specified postprocedural states

== ENCOUNTER → 2024-12-20 | Outpatient (CLI) | payer OTHER ==
[~2024-12-20] MED LIST changes: +24 HOUR ALLER15.8 ML NAS; +AVPAK AZITHROM250 MG PO; +REXULTI2 MG PO; +TRAMADOL HCL50 MG PO
[2024-12-20 13:28] LABS: BASO # 0.1 10*3/uL (0.0-0.1); BASO % 1.8 % (0.0-1.0); EOS # 0.3 10*3/uL (0.0-0.4); EOS % 4.5 % (1.0-4.0); HEMATOCRIT 40.3 % (37.0-47.0); MEAN CELL VOLUME 104.7 fl (81.0-99.0); MEAN CORPUSCULAR HGB 34.3 pg (27.0-31.0); MEAN CORPUSCULAR HGB CONC 32.8 g/dl (33.0-37.0); MEAN PLATELET VOLUME 8.9 fl (9.6-12.3); MONO # 0.5 10*3/uL (0.1-1.0); MONO % 8.8 % (3.0-9.0); NEUT # 3.8 10*3/uL (2.3-7.9); NEUT % 63.5 % (47.0-73.0); PLATELET COUNT AUTOMATED 315 10*3/uL (130-400); RED BLOOD COUNT 3.85 10*6/uL (4.10-5.10); RED CELL DISTRI WIDTH 14.1 % (0-14.5)
[2024-12-20 14:05] LABS: ALKALINE PHOSPHATASE 170 U/L (46-116); BUN 8 mg/dl (9-23); CHLORIDE 105 mmol/L (98-107); CHOLESTEROL 254 mg/dL (<200); FREE T4 1.07 ng/dl (0.89-1.76); LDL CHOLESTEROL 139 mg/dL (9-159); POTASSIUM 3.4 mmol/L (3.4-5.1); SGPT/ALT 25 U/L (5-49); TOTAL PROTEIN 6.8 gm/dL (6.0-8.0); TRIGLYCERIDES 107 mg/dl (<150)
[2024-12-20 14:06] LABS: VITAMIN D, 25-HYDROXY 54.1 ng/mL (30-100)
== END | disposition home or self-care (01) ==
LOC: LAB 13:05
PROVIDERS: ATTEND Physician Assistant
DX: Z51.81 Encounter for therapeutic drug level monitoring (principal); Z79.01 Long term (current) use of anticoagulants